=== PATIENT | female | born 1985 | race African-American/Black ===

== ENCOUNTER 2019-01-17 15:56 | Inpatient (IN) ==
[2019-01-17] MEDS ORDERED: DINOPROSTONE 10 MG VAG.INSERT VAG ONE (16:10)
[2019-01-17] MEDS ORDERED: ONDANSETRON 4 MG/2 ML VIAL IV PRN (16:10)
[2019-01-17] MEDS ORDERED: LACTATED RINGERS 1,000 ML IV PRN (16:10)
[2019-01-17 16:47] LABS: Basophils % 0.4 % (0.0-0.8); Eosinophils # 0.1 10*3/uL (0.0-0.87); Eosinophils % 1.4 % (0.00-10.9); Hematocrit 33.7 VOL% (35.7-47.0); Hemoglobin 11.1 GM/DL (12.0-16.0); Immature Granulocytes % 1.2 %; Immature Granulocytes Absolute 0.11 #; Lymphocytes % 20.6 % (21.3-54.2); Mean Corpuscular HGB Conc 32.9 GM/DL (32-36); Mean Corpuscular Volume 94.7 FL (87-102); Mean Platelet Volume 9.9 FL (9.6-12.0); Monocytes % 7.7 % (1.7-12.7); Neutrophils % 68.7 % (38.7-73.9); Platelet Count 252 T/CUMM (130-400); Red Blood Count 3.56 MC/CUMM (3.8-5.5); White Blood Count 9.5 T/CUMM (4-12)
[2019-01-17] MEDS: BUTORPHANOL 2 MG/ML VIAL IV PRN ×2 (20:05→23:27)
[2019-01-17 20:14] LABS: INR 0.8; PT Patient Result 9.2 SECS; Partial Thromboplastin Time 25.9 SECS (0-40)
[2019-01-17] MEDS: LACTATED RINGERS 1,000 ML IV SCH (20:21)
[2019-01-17] MEDS ORDERED: FAMOTIDINE 20 MG/2 ML VIAL IV ONE (23:01)
[2019-01-17] MEDS ORDERED: hydrOXYzine HCL 25 MG/1 ML VIAL IM PRN (23:01)
[2019-01-17] MEDS ORDERED: LACTATED RINGERS 1,000 ML IV ONE (23:01)
[2019-01-17] MEDS ORDERED: CITRIC ACID/SODIUM CITRATE 30 ML UDCUP PO ONE (23:01)
[2019-01-17] MEDS ORDERED: NALOXONE 0.4 MG/ML VIAL IV PRN (23:01)
[2019-01-17] MEDS ORDERED: PROMETHAZINE 25 MG/1 ML VIAL IM ONE (23:01)
[2019-01-17] MEDS ORDERED: diphenhydrAMINE 50 MG/1 ML VIAL IV PRN ×2 (23:01)
[2019-01-17] MEDS ORDERED: ePHEDrine 50 MG/ML AMP IV PRN (23:01)
[2019-01-17] MEDS ORDERED: fentaNYL 2 MCG/ROPIV 0.2% EPID 100 ML EPIDURAL SCH (23:30)
[2019-01-18] MEDS ORDERED: CLINDAMYCIN INJ 900 MG in PREMIX 1 EACH IV SCH (00:30)
[2019-01-18 00:34] LABS: Apearance,Urine CLEAR (Clear); Bilirubin,Urine Negative (Negative); Blood, Urine Negative (Negative); Glucose,Urine (UA) Negative (Negative); Ketones,Urine Negative (Negative); Mucus,Urine Occasional /LPF (Occasional); Nitrite,Urine Negative (Negative); Protein,Urine Negative; RBC,Urine 5 /HPF (0-4); Squamous Epithelial Cell,Urine Occasional /HPF (0-10); Urine Color Yellow (Yellow); Urine Specific Gravity 1.024 (1.001-1.035); WBC,Urine 2 /HPF (0-6)
[2019-01-18] MEDS: LACTATED RINGERS 1,000 ML IV SCH (01:03)
[2019-01-18] MEDS ORDERED: miSOPROStol 200 MCG TABLET ONE (03:17)
[2019-01-18] MEDS ORDERED: CARBOPROST TROMETHAMINE 250 MCG/ML AMP IM ONE (03:18)
[2019-01-18] MEDS ORDERED: METHYLERGONOVINE 0.2 MG/1 ML AMP ONE (03:18)
[2019-01-18] MEDS ORDERED: LIDOCAINE 1% 50 ML VIAL ONE (03:22)
[2019-01-18] MEDS ORDERED: OXYTOCIN/LR 20 UNIT/1,000 ML BAG IV SCH (03:37)
[2019-01-18] MEDS ORDERED: WITCH HAZEL PADS 100/JAR TOP PRN (06:00)
[2019-01-18] MEDS ORDERED: BENZOCAINE 20%/MENTHOL 0.5% SPRAY 56 GM CAN TOP PRN (06:00)
[2019-01-18] MEDS ORDERED: RHO(D) IMMUNE GLOBULIN 300 MCG SYRINGE IM ONE (06:00)
[2019-01-18] MEDS ORDERED: LANOLIN 50% CREAM 0.3 OZ TUBE TOP PRN (06:00)
[2019-01-18] MEDS ORDERED: MEASLES/MUMPS/RUBELLA VACCINE 0.5 ML VIAL SUBCUT ONE (06:00)
[2019-01-18] MEDS ORDERED: DIPH/TET/ACEL PERT BOOSTER VACCINE 0.5 ML VIAL IM ONE (06:00)
[2019-01-18] MEDS ORDERED: HYDROCORTISONE 2.5% RECTAL CREAM 30 GM TUBE TOP PRN (06:00)
[2019-01-18] MEDS ORDERED: OXYTOCIN/LR 20 UNIT/1,000 ML BAG IV ONE (06:00)
[2019-01-18] MEDS ORDERED: ACETAMINOPHEN 325 MG TABLET PO SCH (06:00)
[2019-01-18] MEDS ORDERED: BISACODYL 10 MG SUPP RECTAL PRN (06:00)
[2019-01-18] MEDS: KETOROLAC 30 MG/1 ML VIAL IV SCH ×4 (07:02→23:29)
[2019-01-18] MEDS: DOCUSATE SODIUM 100 MG CAPSULE PO SCH ×2 (08:22→20:41)
[2019-01-18] MEDS: ACETAMINOPHEN 500 MG TABLET PO SCH ×3 (08:22→19:38)
[2019-01-19] MEDS: ACETAMINOPHEN 500 MG TABLET PO SCH ×2 (01:30→09:03)
[2019-01-19] MEDS: IBUPROFEN 800 MG TABLET PO SCH ×2 (04:20→09:01)
[2019-01-19] MEDS: SIMETHICONE CHEW 80 MG TABLET PO PRN ×2 (05:10→09:04)
[2019-01-19 05:19] LABS: Basophils # 0.1 10*3/uL (0.0-0.2); Basophils % 0.4 % (0.0-0.8); Eosinophils # 0.2 10*3/uL (0.0-0.87); Eosinophils % 1.7 % (0.00-10.9); Hematocrit 30.6 VOL% (35.7-47.0); Hemoglobin 9.8 GM/DL (12.0-16.0); Immature Granulocytes % 0.8 %; Lymphocytes # 3.2 10*3/uL (1.4-4.0); Lymphocytes % 24.2 % (21.3-54.2); Mean Corpuscular Volume 97.8 FL (87-102); Mean Platelet Volume 9.7 FL (9.6-12.0); Monocytes % 7.5 % (1.7-12.7); Neutrophils % 65.4 % (38.7-73.9); Platelet Count 215 T/CUMM (130-400); Red Blood Count 3.13 MC/CUMM (3.8-5.5); Red Cell Distribution Width 13.4 % (9.3-17.3); White Blood Count 13.2 T/CUMM (4-12)
[2019-01-19] MEDS: DOCUSATE SODIUM 100 MG CAPSULE PO SCH (09:04)
[2019-01-19] MEDS ORDERED: BISACODYL 5 MG TABLET PO PRN (10:28)
[2019-01-19 11:45] VITALS: BP 107/63
[2019-01-19] MEDS ORDERED: RHO(D) IMMUNE GLOBULIN 300 MCG SYRINGE IM ONE (12:23)
== END 2019-01-19 17:50 | disposition home or self-care (01) | DRG 806 ==
LOC: N.LD 15:56 → N.OB 01-18 05:57
PROVIDERS: ADMIT Obstetrics & Gynecology; ATTEND Obstetrics & Gynecology